=== PATIENT | male | born 1990 | race Asian ===

== ENCOUNTER 2018-01-30 01:27 | Emergency (ER) | payer SELFPAY ==
[~2018-01-30] VITALS: Ht 177.8 cm; Wt 74.8 kg
[2018-01-30 01:45] VITALS: BP 123/92
--- NOTE | 2018-01-30 01:52 | ED EENT ---
History of Present Illness General Stated Complaint: THROAT PAIN Source: patient History of Present Illness Date Seen by Provider: Jan 30, 2018 Time Seen by Provider: 01:44 Initial Comments PT HAD C/O SORE THROAT TO RN AT TRIAGE I WALK IN ROOM HE IMMEDIATELY STARTS ASKING ME AND RN MULTIPLE QUESTIONS ABOUT HOW MUCH VISIT WILL COST, HOW MUCH TESTS WILL COST, WHAT IF HE CANNOT PAY , ETC--REPEATS QUESTIONS MULTIPLE TIMES MULTIPLE TIMES I REPLIED THAT I CANNOT ANSWER ANY FINANCIAL QUESTIONS AT THIS TIME, AND REFERRED HIM TO ADMIT/DISCHARGE CLASSROOM ASSISTANT FOR FURTHER FINANCIAL INFORMATION, BUT NO ONE IN BILLING DEPT IS HERE AT THIS HOUR AND ON WEEKEND TO ANSWER THOSE QUESTIONS ABOUT SPECIFICALLY WHAT CHARGES WILL BE 0146--PT NOW STATES HE WANTS TO LEAVE. P[employer] STUDENT Allergies and Home Medications Patient Home Medication List Home Medication List Reviewed: No Review of Systems Constitutional: other (NOT OBTAINED) Past Gdclubk-Vfrzvv-Pdxhnt Hx Patient Social History Recent Foreign Travel: No Contact w/Someone Who Travel: No Family Medical History Other PMH NOT OBTAINED Physical Exam General Appearance: other (EXAM NOT DONE. PT DOES NOT APPEAR ILL. TALKING NON- STOP ABOUT COST OF VISIT. DOES NOT VOICE A SINGLE PHYSICAL COMPLAINT TO ME. ) Progress/Results/Core Measures Results/Orders My Orders Orders - CAN GALDAMEZ DO Rapid Strep A Screen (01/30/18 01:43) Departure Impression Impression: Primary Impression: Patient left before evaluation by physician Disposition: 07 AGAINST MEDICAL ADVICE Condition: Against Medical Advice Departure-Patient Inst. Referrals: NO,LOCAL PHYSICIAN (PCP) Primary Care Physician HARJEET MOREIRA MD, LISA K DO Jan 30, 2018 01:52
[2018-01-30] MEDS ORDERED: GUAI1TBM19 PO (02:04)
[2018-01-30] MEDS ORDERED: CETI10TA17 PO (02:04)
== END 2018-01-30 01:45 | disposition left against medical advice (07) ==
LOC: ER 01:31
DX: J02.9 Acute pharyngitis, unspecified (principal)
CPT/HCPCS: 99282